=== PATIENT | male | born 1950 | race Caucasian/White ===

== ENCOUNTER 2016-06-03 22:25 | Emergency (ER) | payer OTHER ==
[2016-06-03 22:43] LABS: BASOPHIL# 0.1 X 10^3uL (0.0-0.1); BASOPHILS 1.4 % (0.0-2.0); EOSINOPHILS 7.1 % (0.0-6.0); EOSINOPHILS# 0.4 X 10^3uL (0.0-0.4); HEMATOCRIT 43.2 % (42.0-54.0); HEMOGLOBIN 14.6 g/dL (14.0-18.0); LYMPHOCYTES# 1.8 X 10^3uL (0.8-3.8); MEAN CELL VOLUME 89.4 fL (80.0-100.0); MEAN CORPUS. HGB CONCENTRATION 33.7 g/dL (32.0-36.0); MEAN CORPUSCULAR HEMOGLOBIN 30.1 pg (29.0-35.0); MEAN PLATELET VOLUME 8.1 fL (7.4-10.4); MONOCYTES 11.2 % (2.0-10.0); MONOCYTES# 0.6 X 10^3uL (0.2-1.0); NEUTROPHILS 47.3 % (54.0-75.0); NEUTROPHILS# 2.5 X 10^3uL (2.6-6.7); PLATELET COUNT 247 X 10^3uL (130-440); RED BLOOD COUNT 4.84 X 10^6uL (4.20-6.10); RED CELL DISTRIBUTION WIDTH 12.4 % (11.5-14.5); WHITE BLOOD COUNT 5.4 X 10^3uL (3.9-10.7)
[2016-06-03 23:00] LABS: A/G RATIO 1.3; ALBUMIN 4.3 g/dL (3.5-5.0); ALKALINE PHOSPHATASE 53 U/L (38-126); ALT 38 U/L (21-72); AST 26 U/L (17-59); BILIRUBIN, TOTAL 0.5 mg/dL (0.2-1.3); BLOOD UREA NITROGEN 34 mg/dL (9-20); CALCIUM 9.4 mg/dL (8.4-10.2); CHLORIDE 105 mmol/L (98-107); EST GLOMERULAR FILTRATION RATE 36 mL/min; GLUCOSE 93 mg/dL (70-100); MAGNESIUM 2.3 mg/dL (1.6-2.3); POTASSIUM 4.4 mmol/L (3.5-5.1); SODIUM 142 mmol/L (137-145); TOTAL PROTEIN 7.6 g/dL (6.3-8.2)
[2016-06-03 23:14] LABS: TROPONIN I < 0.012 ng/mL (0.00-0.034)
--- NOTE | 2016-06-04 00:07 | ER PHYSICIAN DOCUMENTATION ---
Physician Documentation [facility] Name:Richie Culp Age:65 yrs Sex:Male :1950 Arrival Date:06/03/2016 Time:22:23 BedTrauma-C Private MD:Corinna Rivera ED Amee Mitul Disposition: 06/05 12:07 Chart complete. tl1 Disposition: 06/03/16 23:49 Discharged to Home/Self Care. Impression: Palpitations. - Condition is Good. - Discharge Instructions: PALPITATIONS. - Medical Reconciliation form form. - Follow up: Corinna Rivera MD; When: 4- 6 days; Reason: Recheck today's complaints, Continuance of care. - Problem is new. - Symptoms are resolved. HPI: 06/03 22:27 This 65 yrs old Male presents to ER with complaints of Irregular Fast Pulse. tl1 22:37 The patient presents with a history of irregular heart beat, heart racing. Context: The tl1 symptoms occur with light activity. Onset: The symptom(s)/episode began/occurred suddenly. Duration: The patient or guardian reports a single episode, that lasted 45 minute(s). Modifying factors: The symptoms are aggravated by nothing. The symptoms are alleviated by nothing. Associated signs and symptoms: Pertinent negatives: chest pain, cough, fever, nausea, SOB, near-syncope, vomiting. Severity of symptoms: At their worst the symptoms were moderate in the emergency department the symptoms have resolved. He has a h/o DM - I, high cholesterol. He had a negative stress test 3 weeks ago, and has been fine. 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 Denied CP, SOB, diaphoresis, N/V. No LE pain or swelling.. Historical: - Allergies: No known drug Allergies; - Home Meds: 1. Synthroid Oral 2. levimir 3. Novolog Sub-Q 4. losartan oral 5. toujeo - PMHx: Diabetes - IDDM; - PSHx: abdominal; - Tetanus: < 10 years. - Ebola Screening: : Patient denies exposure to infectious person. Patient denies travel to an Ebola-affected area in the 21 days before illness onset. . - Immunization history: Flu Vaccine < 1 year. - Social history: Smoking status: Patient states former smoker of tobacco. Patient uses alcohol occasionally. - Code Status:: Full code. ROS: 22:42 Cardiovascular: Positive for palpitations, Negative for chest pain, edema, orthopnea, tl1 paroxysmal nocturnal dyspnea. 22:42 All other systems are negative. Exam: 22:42 Constitutional: This is a well developed, well nourished patient who is awake, alert, tl1 and in no acute distress. Head/Face: Normocephalic, atraumatic. 22:42 Neck: Trachea midline, no thyromegaly or masses palpated, and no cervical tl1 lymphadenopathy. Supple, full range of motion without nuchal rigidity, or vertebral point tenderness. No Meningismus. 22:42 Cardiovascular: Rate: normal, Rhythm: regular, Edema: is not appreciated, JVD: is not appreciated. 22:42 Respiratory: Respirations: normal, Breath sounds: are normal. 22:42 Abdomen/GI: Inspection: abdomen appears normal, Palpation: abdomen is soft and non-tender. 22:42 Musculoskeletal/extremity: Exam is negative for acute changes. 22:42 Skin: Exam negative for acute changes. 22:42 Neuro: grossly normal. Vital Signs: 22:39 BP 140 / 90; Pulse 90; Resp 16; Pulse Ox 94% on R/A; Weight 79.38 kg; Height 5 ft. 9 lb in. (175.26 cm); Pain 0/10; 16 00:06 BP 123 / 75; Pulse 80; Resp 15; Pulse Ox 92% on R/A; Pain 0/10; lb 06/03 22:39 Body Mass Index 25.84 (79.38 kg, 175.26 cm) lb MDM: 06/03 22:27 Patient medically screened. tl1 22:41 EKG attached lb 23:00 Data reviewed: vital signs, nurses notes, old medical records, lab test result(s), EKG, tl1 radiologic studies, plain films, and as a result, I will discharge patient. Test interpretation: by ED physician or midlevel provider: ECG. 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 ED course: Asymptomatic. I told him I suspect he had a bout of A fib or SVT, which has resolved. He may benefit from a Holter monitor if his symptoms become frequent. In the mean time he should try to get an ECG LUCIO the next time he has similar symptoms.. 06/03 22:51 Order name: CBC AUTO DIF, MDIF/RMOR IF IND; Complete Time: 11:58 EDHI 06/05 11:57 Interpretation: WHITE BLOOD COUNT 5.4; HEMOGLOBIN 14.6; HEMATOCRIT 43.2; PLATELET COUNT tl1 247; NEUTROPHILS 47.3; MONOCYTES 11.2; EOSINOPHILS 7.1. 06/03 23:02 Order name: COMPREHENSIVE METABOLIC PANEL; Complete Time: 11:58 EDMS 06/05 11:58 Interpretation: SODIUM 142; POTASSIUM 4.4; CHLORIDE 105; CARBON DIOXIDE 28; GLUCOSE 93; tl1 BLOOD UREA NITROGEN 34; CREATININE 2.0. 06/03 23:02 Order name: MAGNESIUM; Complete Time: 11:58 EDMS 06/05 11:58 Interpretation: Normal: MAGNESIUM 2.3. [facility] 06/03 23:07 Order name: DDIMER; Complete Time: 11:58 EDMS 06/05 11:58 Interpretation: Abnormal: DDIMER < 200. [facility] 06/03 23:14 Order name: BNP,NT-PRO; Complete Time: 11:58 EDMS 06/05 11:58 Interpretation: Normal: BNP,NT-PRO 52. [facility] 06/03 23:14 Order name: TROPONIN I; Complete Time: 11:58 EDHI 06/03 22:29 Order name: EKG - 12 Lead; Complete Time: 22:45 [facility] 06/05 11:58 Interpretation: Normal. tl1 Dispensed Medications: No medications were administered Signatures: Mitul Lubin MD MD tl1 Yanet Yo
--- NOTE | 2016-06-04 00:07 | ER NURSING DOCUMENTATION ---
Nurse's Notes [facility] Name:Richie Culp Age:65 yrs Sex:Male :1950 Arrival Date:06/03/2016 Time:22:23 BedTrauma-C Private MD:Corinna Rivera Diagnosis:Palpitations Presentation: 06/03 22:33 Presenting complaint: Patient states: palpitations, feels like skipping beats. denies lb chest pain. Transition of care: Home. Notified ED Physician of Dr. Lubin notified. 22:33 Acuity: REX 3 lb 22:33 Method Of Arrival: Walk In lb Triage Assessment: 22:39 General: Appears in no apparent distress, Behavior is appropriate for age, pleasant. lb Pain: Denies pain. Historical: - Allergies: No known drug Allergies; - Home Meds: 1. Synthroid Oral 2. levimir 3. Novolog Sub-Q 4. losartan oral 5. toujeo - PMHx: Diabetes - IDDM; - PSHx: abdominal; - Tetanus: < 10 years. - Ebola Screening: : Patient denies exposure to infectious person. Patient denies travel to an Ebola-affected area in the 21 days before illness onset. . - Immunization history: Flu Vaccine < 1 year. - Social history: Smoking status: Patient states former smoker of tobacco. Patient uses alcohol occasionally. - Code Status:: Full code. Screenin:40 Infectious Disease Risk None. Abuse screen: Denies threats or abuse. Denies injuries lb from another. Nutritional screening: No deficits noted. Assessment: 22:40 See Triage Assessment done by same RN. lb Vital Signs: 22:39 BP 140 / 90; Pulse 90; Resp 16; Pulse Ox 94% on R/A; Weight 79.38 kg; Height 5 ft. 9 lb in. (175.26 cm); Pain 0/10; 06/04 00:06 BP 123 / 75; Pulse 80; Resp 15; Pulse Ox 92% on R/A; Pain 0/10; lb 06/03 22:39 Body Mass Index 25.84 (79.38 kg, 175.26 cm) lb ED Course: 06/03 22:20 EKG done. (by ED staff). Reviewed by Mitul Lubin MD. em3 22:23 Patient arrived in ED. em3 22:27 Mitul Lubin MD is Attending Physician. tl1 22:33 Yanet Yo is Primary Nurse. lb 22:35 Triage completed. lb 22:39 Corinna Rivera MD is Private Physician. em3 22:40 Inserted peripheral IV: 20 gauge in right antecubital area and blood collected. lb 22:40 Valuables Remains with patient Patient has correct armband on for positive lb identification. Placed in gown. Bed in low position. Call light in reach. Side rails up X2. radiation monitor on. Pulse ox on. NIBP on. 22:41 EKG done per protocol. Performed by ED Staff. lb 22:41 EKG attached lb 23:49 Corinna Rivera MD is Referral Physician. tl1 Administered Medications: No medications were administered Outcome: 23:49 Discharge ordered by . tl1 16 00:06 Discharged to home ambulatory. lb Condition: good Discharge Assessment: Patient awake, alert and oriented x 3. No cognitive and/or functional deficits noted. Patient verbalized understanding of disposition instructions. Instructed on discharge instructions, follow up and referral plans. IV D/Nahum 00:06 Patient left the ED. lb Signatures: Talib Martinez em3 Mitul Lubin MD MD tl1 Yanet Yo lb
== END 2016-06-04 00:07 | disposition home or self-care (01) ==
LOC: ER 22:25
DX: R00.2 Palpitations (principal); E11.9 Type 2 diabetes mellitus without complications; Z79.4 Long term (current) use of insulin; Z79.899 Other long term (current) drug therapy
CPT/HCPCS: 80053; 83735; 83880; 84443; 84484; 85025; 85379; 93005; 99284